=== PATIENT | female | born 1955 | race Caucasian/White ===

== ENCOUNTER 2019-04-26 21:42 | Inpatient (IN) | payer BC, OTHER ==
[2019-04-26] MEDS ORDERED: Albuterol/Ipratropium 3.0-0.5 MG/3 ML Neb Soln ONE (21:44)
[2019-04-26] MEDS ORDERED: Albuterol/Ipratropium 3.0-0.5 MG/3 ML Neb Soln NEB ONE (22:02)
[2019-04-26] MEDS ORDERED: methylPREDNISolone Sodium Succinate 125 MG/2 ML SDV IVPUSH ONE (22:02)
--- NOTE | 2019-04-26 22:20 | EDM.PDOC ---
ED HPI GENERAL MEDICAL PROBLEM - General Chief Complaint: Respiratory Problem Stated Complaint: TROUBLE BREATHING Time Seen by Provider: 04/26/19 22:15 Source of Information: Reports: Patient History Limitations: Reports: No Limitations - History of Present Illness INITIAL COMMENTS - FREE TEXT/NARRATIVE: This is a 63-year-old female who presents to the emergency room with a chief complaint of severe shortness of breath. Patient is a smoker and was diagnosed with COPD last cigarette intake was 2 days ago patient states she has been short of breath with sick kids in the house. Onset: Today Duration: Day(s):, Getting Worse Location: Reports: Chest Severity: Moderate Improves with: Reports: None Worsens with: Reports: Movement Associated Symptoms: Reports: cough w sputum, Shortness of Breath - Related Data Allergies Allergy/AdvReac Type Severity Reaction Status Date / Time Penicillins Allergy Other Verified 04/26/19 21:50 Home Meds: Home Meds Albuterol [Ventolin HFA] 1 puff INH ASDIRECTED PRN 04/26/19 [History] Albuterol/Ipratropium [Combivent Respimat] 1 puff IH ASDIRECTED PRN 04/26/19 [ History] Budesonide/Formoterol Fumarate [Symbicort 160-4.5 Mcg Inhaler] 1 puff IH BID [History] lisinopriL [Lisinopril] 10 mg PO DAILY 04/26/19 [History] Past Medical History HEENT History: Reports: None Cardiovascular History: Reports: Hypertension Respiratory History: Reports: COPD Gastrointestinal History: Reports: None Genitourinary History: Reports: None [employer] History: Reports: Musculoskeletal History: Reports: None Neurological History: Reports: None Psychiatric History: Reports: None Endocrine/Metabolic History: Reports: None Hematologic History: Reports: None Immunologic History: Reports: None Oncologic (Cancer) History: Reports: None Dermatologic History: Reports: None - Infectious Disease History Infectious Disease History: Reports: Meningitis - Past Surgical History Head Surgeries/Procedures: Reports: None GI Surgical History: Reports: Cholecystectomy Social & Family History - Family History Family Medical History: Noncontributory - Tobacco Use Smoking Status *Q: Current Every Day Smoker Years of Tobacco use: 42 Packs/Tins Daily: 0.5 - Caffeine Use Caffeine Use: Reports: Coffee - Recreational Drug Use Recreational Drug Use: No ED ROS GENERAL - Review of Systems Review Of Systems: See Below Constitutional: Reports: Malaise, Weakness HEENT: Reports: No Symptoms Respiratory: Reports: Shortness of Breath, Cough Cardiovascular: Reports: Dyspnea on Exertion Endocrine: Reports: No Symptoms GI/Abdominal: Reports: No Symptoms : Reports: No Symptoms Musculoskeletal: Reports: No Symptoms Skin: Reports: No Symptoms Neurological: Reports: No Symptoms Psychiatric: Reports: No Symptoms Hematologic/Lymphatic: Reports: No Symptoms Immunologic: Reports: No Symptoms ED EXAM, GENERAL - Physical Exam Exam: See Below Free Text/Narrative:: 63-year-old with shortness of breath Physical exam HEENT is normal Chest normal lungs: Added wheezing use of accessory muscles decreased breath sounds abdomen normal Exam Limited By: No Limitations General Appearance: Alert, WD/WN, Moderate Distress Eye Exam: Bilateral Eye: Normal Fundi, Normal Inspection Nose: Normal Inspection, Normal Mucosa, No Blood Throat/Mouth: Normal Inspection, Normal Lips, Normal Teeth Head: Atraumatic, Normocephalic Neck: Normal Inspection, Supple, Non-Tender Respiratory/Chest: Decreased Breath Sounds, Wheezing, Accessory Muscle Use, Prolonged Expiration Cardiovascular: Normal Peripheral Pulses, Regular Rate, Rhythm, No Edema, No JVD , No Murmur GI/Abdominal: Normal Bowel Sounds, Soft, Non-Tender, No Distention, No Abnormal Bruit (Female) Exam: Deferred Rectal (Female) Exam: Deferred Extremities: Normal Inspection, Normal Range of Motion Neurological: Alert, Oriented, CN II-XII Intact Psychiatric: Normal Affect, Normal Mood Skin Exam: Warm, Dry, Intact Course - Vital Signs Text/Narrative:: 63-year-old female presents to the emergency room chief complaint of severe shortness of breath. Patient has a history of COPD and a strong smoking history. Patient states she been short of breath for the last 5 days without improvement. Patient also has a lot of sick babies in her house. On physical exam patient is wheezing and very short of breath using some accessory muscles H EENT: Throat is normal ears are normal no evidence of deviation Chest: Normal S1-S2 no tenderness along costal margin Lungs: Bilateral wheezing and rhonchi throughout. Some accessory muscles Abdomen soft tender Extremities normal Last Recorded V/S: Last Vital Signs Temp 97 F 04/27/19 00:43 Pulse 67 04/27/19 00:43 Resp 20 04/27/19 00:43 BP 141/78 H 04/27/19 00:43 Pulse Ox 93 L 04/27/19 00:43 - Orders/Labs/Meds Orders: Active Orders 24 hr Category Date Time Status RT Aerosol Therapy [RC] ASDIRECTED Care 04/26/19 22:02 Active Labs: Laboratory Tests 04/26/19 04/26/19 04/26/19 Range/Units 21:50 21:50 21:50 WBC 6.60 (4.0-11.0) K/uL RBC 4.61 (4.30-5.90) M/uL Hgb 13.6 (12.0-16.0) g/dL Hct 42.4 (36.0-46.0) % MCV 92.0 (80.0-98.0) fL MCH 29.5 (27.0-32.0) pg MCHC 32.1 (31.0-37.0) g/dL RDW Std Deviation 49.1 (28.0-62.0) fl RDW Coeff of Silvio 15 (11.0-15.0) % Plt Count 249 (150-400) K/uL MPV 9.90 (7.40-12.00) fL Add Manual Diff YES Neutrophils % (Manual) 41 L (48.0-80.0) % Lymphocytes % (Manual) 52 H (16.0-40.0) % Monocytes % (Manual) 5 (0.0-15.0) % Eosinophils % (Manual) 2 (0.0-7.0) % Nucleated RBC % 0.0 /100WBC Absolute Seg Neuts 2.7 (1.4-5.7) Band Neutrophils # 3.4 Lymphocytes # (Manual) 3.4 H (0.6-2.4) Monocytes # (Manual) 0.3 (0.0-0.8) Eosinophils # (Manual) 0.1 (0.0-0.7) Nucleated RBCs # 0 K/uL Sodium 139 (136-145) mmol/L Potassium 4.2 (3.5-5.1) mmol/L Chloride 103 (98-107) mmol/L Carbon Dioxide 29.7 (21.0-32.0) mmol/L BUN 10 (7.0-18.0) mg/dL Creatinine 0.7 (0.6-1.0) mg/dL Est Cr Clr Drug Dosing 90.11 mL/min Estimated GFR (MDRD) > 60.0 ml/min Glucose 103 (74-106) mg/dL Calcium 9.1 (8.5-10.1) mg/dL Total Bilirubin 0.1 L (0.2-1.0) mg/dL AST 24 (15-37) IU/L ALT 33 (14-63) IU/L Alkaline Phosphatase 98 (46-116) U/L Troponin I < 0.050 (0.000-0.056) ng/mL B-Natriuretic Peptide 31 (<100) PG/ML Total Protein 7.8 (6.4-8.2) g/dL Albumin 3.4 (3.4-5.0) g/dL Globulin 4.4 H (2.6-4.0) g/dL Albumin/Globulin Ratio 0.8 L (0.9-1.6) Meds: Medications Discontinued Medications Generic Name Dose Route Start Last Admin Trade Name Freq PRN Reason Stop Dose Admin Albuterol/Ipratropium Confirm 04/26/19 21:44 04/26/19 22:09 Duoneb 3.0-0.5 Mg/3 Ml Administered 04/26/19 21:45 Not Given Dose 3 ml .ROUTE .STK-MED ONE Albuterol/Ipratropium 3 ml 04/26/19 22:02 04/26/19 22:07 Duoneb 3.0-0.5 Mg/3 Ml NEB 04/26/19 22:03 3 ml ONETIME ONE Administration Methylprednisolone Sodium Succinate 125 mg 04/26/19 22:02 04/26/19 22:07 Solu-Medrol IVPUSH 04/26/19 22:03 125 mg ONETIME ONE Administration Departure - Departure Time of Disposition: 01:07 Disposition: Refer to Observation Condition: Fair Clinical Impression: COPD with exacerbation, Hypoxia - Discharge Information Referrals: PCP,Unknown [Primary Care Provider] - Forms: ED Department Discharge Sepsis Event Note - Evaluation Sepsis Screening Result: No Definite Risk - Focused Exam Vital Signs: Vital Signs Temp Pulse Resp BP Pulse Ox 04/27/19 00:43 97 F 67 20 141/78 H 93 L 04/26/19 22:14 84 26 H 160/66 H 94 L 04/26/19 21:47 96.8 F 78 28 H 192/73 H 78 L Date Exam was Performed: 04/27/19 Time Exam was Performed: 01:04 - My Orders Last 24 Hours: My Active Orders 04/26/19 22:02 RT Aerosol Therapy [RC] ASDIRECTED - Assessment/Plan Last 24 Hours: My Active Orders 04/26/19 22:02 RT Aerosol Therapy [RC] ASDIRECTED
[2019-04-26 22:25] LABS: BLOOD UREA NITROGEN,BUN 10 mg/dL (7.0-18.0); CARBON DIOXIDE,CO2 29.7 mmol/L (21.0-32.0); CHLORIDE,CL 103 mmol/L (98-107); GLUCOSE RANDOM 103 mg/dL (74-106); POTASSIUM,K 4.2 mmol/L (3.5-5.1); SODIUM,NA 139 mmol/L (136-145)
--- NOTE | 2019-04-26 23:07 | CR ---
INDICATION: Shortness of breath TECHNIQUE: Chest 1 view COMPARISON: None FINDINGS: Cardiovascular and mediastinum: Heart size and vasculature are normal in caliber and appearance. Lungs and pleural spaces: No pleural effusion or pneumothorax. No focal consolidation. Bones and soft tissues: No significant findings. IMPRESSION: No acute pulmonary consolidation. Dictated by Rommel Villeda MD @ Apr 26 2019 11:05PM Signed by Dr. Rommel Villeda @ Apr 26 2019 11:06PM
[2019-04-27] MEDS: methylPREDNISolone Sodium Succinate 125 MG/2 ML SDV IVPUSH SCH ×3 (05:32→22:06)
[2019-04-27] MEDS ORDERED: Albuterol/Ipratropium 3.0-0.5 MG/3 ML Neb Soln NEB SCH (06:00)
[2019-04-27 06:12] LABS: BLOOD UREA NITROGEN,BUN 10 mg/dL (7.0-18.0); CHLORIDE,CL 103 mmol/L (98-107); GLUCOSE RANDOM 145 mg/dL (74-106); SODIUM,NA 139 mmol/L (136-145)
--- NOTE | 2019-04-27 08:53 | PCM.HP.2 ---
H&P History of Present Illness - General Date of Service: 04/27/19 Admit Problem/Dx: Admission Diagnosis/Problem Admission Diagnosis/Problem Hypoxia Source of Information: Patient History Limitations: Reports: No Limitations - History of Present Illness Initial Comments - Free Text/Narative: Pt is a 63-year-old female with past medical history of COPD and chronic tobacco abuse, hypertension; presenting yesterday with acute on chronic worsening of shortness of breath. Patient denied any fevers or chills however was stating that normally she has exertional dyspnea however she started to experience worsening dyspnea even at rest. Patient denies any fevers, chills, body aches, chest pain, diarrhea, constipation. Does endorse having some sick kids around her however cannot think of any other symptoms. States her last cigarette was 3 days prior and has been more or less compliant with her daily medications. ED course: Chest x-ray negative, received a dose of IV methylprednisolone and DuoNeb treatments. Flu was also negative. Last echocardiogram was per patient greater than 5 years ago. Bedside: Shortness of breath at rest; endorses not using oxygen at home secondary to her financial status. Was advised to use oxygen at home per her primary physician. No complaints at this time. Headache Pain Score (Numeric/FACES): 2 - Related Data Allergies/Adverse Reactions: Allergies Allergy/AdvReac Type Severity Reaction Status Date / Time Penicillins Allergy Other Verified 04/27/19 07:51 Home Medications: Home Meds Albuterol [Ventolin HFA] 1 puff INH ASDIRECTED PRN 04/26/19 [History] Albuterol/Ipratropium [Combivent Respimat] 1 puff IH ASDIRECTED PRN 04/26/19 [ History] Budesonide/Formoterol Fumarate [Symbicort 160-4.5 Mcg Inhaler] 2 puff IH BID [History] lisinopriL [Lisinopril] 10 mg PO DAILY 04/26/19 [History] Past Medical History HEENT History: Reports: None Cardiovascular History: Reports: Hypertension Respiratory History: Reports: Asthma, COPD Gastrointestinal History: Reports: None Genitourinary History: Reports: None [employer] History: Reports: Musculoskeletal History: Reports: None Neurological History: Reports: None Psychiatric History: Reports: None Endocrine/Metabolic History: Reports: None Hematologic History: Reports: None Immunologic History: Reports: None Oncologic (Cancer) History: Reports: None Dermatologic History: Reports: None - Infectious Disease History Infectious Disease History: Reports: Meningitis - Past Surgical History Head Surgeries/Procedures: Reports: None GI Surgical History: Reports: Cholecystectomy Social & Family History - Family History Family Medical History: Noncontributory - Tobacco Use Smoking Status *Q: Current Every Day Smoker Years of Tobacco use: 40 Packs/Tins Daily: 5 - Caffeine Use Caffeine Use: Reports: Coffee - Recreational Drug Use Recreational Drug Use: No H&P Review of Systems - Review of Systems: Review Of Systems: See Below General: Denies: Fever, Chills, Malaise, Weakness, Fatigue HEENT: Reports: No Symptoms Pulmonary: Reports: Shortness of Breath, Cough. Denies: Pleuritic Chest Pain, Sputum Cardiovascular: Reports: Dyspnea on Exertion. Denies: Chest Pain, Palpitations , Edema Gastrointestinal: Reports: No Symptoms Genitourinary: Reports: No Symptoms Musculoskeletal: Reports: No Symptoms Psychiatric: Reports: No Symptoms Neurological: Reports: No Symptoms Exam - Exam Exam: See Below - Vital Signs Vital Signs: Last Vital Signs Temp 97.2 F 04/27/19 08:00 Pulse 80 04/27/19 08:00 Resp 21 H 04/27/19 08:00 BP 179/84 H 04/27/19 08:00 Pulse Ox 93 L 04/27/19 08:00 Weight: 235 lb 1.6 oz - Exam Quality Assessment: Supplemental Oxygen General: Alert, Oriented, Cooperative HEENT: EOMI, Mucosa Moist & [place] Neck: Supple, Trachea Midline Lungs: Other (Faint wheeze in upper lung [place]; tight but moving air ) Cardiovascular: Regular Rate, Regular Rhythm GI/Abdominal Exam: Normal Bowel Sounds, Soft, Non-Tender Extremities: Other (trace pitting edema of lower extrmeities ) Skin: Warm, Dry Neuro Extensive - Mental Status: Alert, Oriented x3 Neuro Extensive - Motor, Sensory, Reflexes: Normal Gait Psychiatric: Alert, Normal Affect, Normal Mood - Patient Data Lab Results Last 24 hrs: Laboratory Results - last 24 hr 04/26/19 04/26/19 04/26/19 Range/Units 21:50 21:50 21:50 WBC 6.60 (4.0-11.0) K/uL RBC 4.61 (4.30-5.90) M/uL Hgb 13.6 (12.0-16.0) g/dL Hct 42.4 (36.0-46.0) % MCV 92.0 (80.0-98.0) fL MCH 29.5 (27.0-32.0) pg MCHC 32.1 (31.0-37.0) g/dL RDW Std Deviation 49.1 (28.0-62.0) fl RDW Coeff of Silvio 15 (11.0-15.0) % Plt Count 249 (150-400) K/uL MPV 9.90 (7.40-12.00) fL Add Manual Diff YES Neutrophils % (Manual) 41 L (48.0-80.0) % Lymphocytes % (Manual) 52 H (16.0-40.0) % Monocytes % (Manual) 5 (0.0-15.0) % Eosinophils % (Manual) 2 (0.0-7.0) % Basophils % (Manual) (0.0-1.5) % Nucleated RBC % 0.0 /100WBC Absolute Seg Neuts 2.7 (1.4-5.7) Band Neutrophils # 3.4 Lymphocytes # (Manual) 3.4 H (0.6-2.4) Monocytes # (Manual) 0.3 (0.0-0.8) Eosinophils # (Manual) 0.1 (0.0-0.7) Basophils # (Manual) (0.0-0.1) Nucleated RBCs # 0 K/uL Sodium 139 (136-145) mmol/L Potassium 4.2 (3.5-5.1) mmol/L Chloride 103 (98-107) mmol/L Carbon Dioxide 29.7 (21.0-32.0) mmol/L BUN 10 (7.0-18.0) mg/dL Creatinine 0.7 (0.6-1.0) mg/dL Est Cr Clr Drug Dosing 90.11 mL/min Estimated GFR (MDRD) > 60.0 ml/min Glucose 103 (74-106) mg/dL Calcium 9.1 (8.5-10.1) mg/dL Total Bilirubin 0.1 L (0.2-1.0) mg/dL AST 24 (15-37) IU/L ALT 33 (14-63) IU/L Alkaline Phosphatase 98 (46-116) U/L Troponin I < 0.050 (0.000-0.056) ng/mL B-Natriuretic Peptide 31 (<100) PG/ML Total Protein 7.8 (6.4-8.2) g/dL Albumin 3.4 (3.4-5.0) g/dL Globulin 4.4 H (2.6-4.0) g/dL Albumin/Globulin Ratio 0.8 L (0.9-1.6) 04/27/19 04/27/19 Range/Units 05:40 05:40 WBC 5.13 (4.0-11.0) K/uL RBC 4.51 (4.30-5.90) M/uL Hgb 13.2 (12.0-16.0) g/dL Hct 41.6 (36.0-46.0) % MCV 92.2 (80.0-98.0) fL MCH 29.3 (27.0-32.0) pg MCHC 31.7 (31.0-37.0) g/dL RDW Std Deviation 49.1 (28.0-62.0) fl RDW Coeff of Silvio 15 (11.0-15.0) % Plt Count 258 (150-400) K/uL MPV 10.00 (7.40-12.00) fL Add Manual Diff YES Neutrophils % (Manual) 77 (48.0-80.0) % Lymphocytes % (Manual) 20 (16.0-40.0) % Monocytes % (Manual) 2 (0.0-15.0) % Eosinophils % (Manual) (0.0-7.0) % Basophils % (Manual) 1 (0.0-1.5) % Nucleated RBC % 0.0 /100WBC Absolute Seg Neuts 4.0 (1.4-5.7) Band Neutrophils # Lymphocytes # (Manual) 1.0 (0.6-2.4) Monocytes # (Manual) 0.1 (0.0-0.8) Eosinophils # (Manual) (0.0-0.7) Basophils # (Manual) 0.1 (0.0-0.1) Nucleated RBCs # 0 K/uL Sodium 139 (136-145) mmol/L Potassium 5.0 (3.5-5.1) mmol/L Chloride 103 (98-107) mmol/L Carbon Dioxide 28.0 (21.0-32.0) mmol/L BUN 10 (7.0-18.0) mg/dL Creatinine 0.7 (0.6-1.0) mg/dL Est Cr Clr Drug Dosing 90.11 mL/min Estimated GFR (MDRD) > 60.0 ml/min Glucose 145 H (74-106) mg/dL Calcium 8.8 (8.5-10.1) mg/dL Total Bilirubin (0.2-1.0) mg/dL AST (15-37) IU/L ALT (14-63) IU/L Alkaline Phosphatase (46-116) U/L Troponin I (0.000-0.056) ng/mL B-Natriuretic Peptide (<100) PG/ML Total Protein (6.4-8.2) g/dL Albumin (3.4-5.0) g/dL Globulin (2.6-4.0) g/dL Albumin/Globulin Ratio (0.9-1.6) Result Diagrams: 04/27/19 05:40 04/27/19 05:40 Abelardo Results Last 24 hrs: Microbiology 04/26/19 23:04 Influenza Type A Antigen Screen - Final Nasopharyngeal Swab NEGATIVE INFLUENZA A VIRUS AG REFERENCE RANGE: NEGATIVE Influenza Type B Antigen Screen - Final NEGATIVE INFLUENZA B VIRUS AG REFERENCE RANGE: NEGATIVE Sepsis Event Note - Evaluation Sepsis Screening Result: No Definite Risk - Focused Exam Vital Signs: Vital Signs Temp Pulse Resp BP Pulse Ox 04/27/19 08:00 97.2 F 80 21 H 179/84 H 93 L 04/27/19 04:00 97.2 F 73 18 142/67 H 97 04/27/19 01:11 96.6 F 24 H 163/77 H 94 L 04/27/19 00:43 97 F 67 20 141/78 H 93 L 04/26/19 22:14 84 26 H 160/66 H 94 L 04/26/19 21:47 96.8 F 78 28 H 192/73 H 78 L Date Exam was Performed: 04/27/19 Time Exam was Performed: 12:05 Problem List Initiated/Reviewed/Updated: Yes Orders Last 24hrs: Active Orders 24 hr Category Date Time Status Admission Status [Patient Status] [ADT] Stat ADT 04/27/19 01:08 Active Influenza Vaccine Charge [RC] .DISCHARGE Care 04/27/19 01:28 Active RT Aerosol Therapy [RC] ASDIRECTED Care 04/26/19 22:02 Active RT Aerosol Therapy [RC] ASDIRECTED Care 04/27/19 01:57 Active Telemetry Monitoring [Cardiac Monitoring] [RC] . Care 04/27/19 07:30 Active DIRECTED Regular Diet [DIET] Diet 04/27/19 Breakfast Active Albuterol/Ipratropium [DuoNeb 3.0-0.5 MG/3 ML] Med 04/27/19 06:00 Active 3 ml NEB Q6HRRT FLU Vacc [id number](6MOS+)/PF [Fluzone Quad Med 04/27/19 10:00 Once Syringe] 60 mcg IM .ONCE ONE methylPREDNISolone Sod Succ [Solu-MEDROL] Med 04/27/19 06:00 Active 125 mg IVPUSH Q8H Medication Orders Albuterol/Ipratropium (Duoneb 3.0-0.5 Mg/3 Ml) 3 ml NEB Q6HRRT [facility] Last Admin: 04/27/19 05:29 Dose: 3 ml Influenza Virus Vaccine (Fluzone Quad Syringe) 60 mcg IM .ONCE ONE Stop: 04/27/19 10:01 Methylprednisolone Sodium Succinate (Solu-Medrol) 125 mg IVPUSH Q8H [facility] Last Admin: 04/27/19 05:32 Dose: 125 mg Assessment/Plan Comment:: Assessment: 1. COPD exacerbation 2. Tobacco abuse 3. PMH: HTN Plan: Admit to inpatient. Full code. 1. Continue supplemental O2, Duo nebs q4hrs and IV-methylprednisolone q8hrs; hold home COPD medications for now; continue Lisinopril. Ordered a ECHO to evaluate for increasing SOB w. exertion and orthopnea 2. Nicotine patch if necessary 3. Continue to monitor throughout today; may require home O2 at discharge; continuous pulse ox 4. pt understood plan.
[2019-04-27] MEDS: Heparin Sodium 5,000 Units/ML Vial IVPUSH SCH ×2 (09:42→17:23)
[2019-04-27] MEDS: Lisinopril 10 MG Tab PO SCH (09:42)
[2019-04-27] MEDS: Pantoprazole 40 MG Tab.CR PO SCH (09:42)
[2019-04-27] MEDS ORDERED: FLU Vacc QS2019-20(6MOS+)/PF 60 MCG/0.5 ML SYRINGE IM ONE (10:00)
[2019-04-27] MEDS: Albuterol/Ipratropium 3.0-0.5 MG/3 ML Neb Soln NEB SCH ×4 (11:13→21:23)
[2019-04-27] MEDS: Levofloxacin 250 MG Tab PO SCH (11:17)
[2019-04-27] MEDS ORDERED: Albuterol/Ipratropium 3.0-0.5 MG/3 ML Neb Soln NEB PRN (13:36)
[2019-04-28] MEDS: Heparin Sodium 5,000 Units/ML Vial IVPUSH SCH ×2 (01:44→02:10)
[2019-04-28] MEDS: Albuterol/Ipratropium 3.0-0.5 MG/3 ML Neb Soln NEB SCH ×6 (01:45→22:34)
[2019-04-28] MEDS: Heparin Sodium 5,000 Units/ML Vial SUBCUT SCH ×4 (02:19→17:18)
[2019-04-28 06:18] LABS: BLOOD UREA NITROGEN,BUN 12 mg/dL (7.0-18.0); CARBON DIOXIDE,CO2 28.7 mmol/L (21.0-32.0); CHLORIDE,CL 102 mmol/L (98-107); GLUCOSE RANDOM 152 mg/dL (74-106); POTASSIUM,K 4.1 mmol/L (3.5-5.1); SODIUM,NA 140 mmol/L (136-145)
[2019-04-28] MEDS: methylPREDNISolone Sodium Succinate 125 MG/2 ML SDV IVPUSH SCH ×3 (06:30→22:10)
[2019-04-28] MEDS: Pantoprazole 40 MG Tab.CR PO SCH (08:46)
[2019-04-28] MEDS: Lisinopril 10 MG Tab PO SCH (08:47)
--- NOTE | 2019-04-28 08:57 | PCM.PN ---
- General Info Date of Service: 04/28/19 Subjective Update: Bedside: endorses feeling better than yesterday but still feels SOB at rest despite supplemental O2; no pain or discomfort. Functional Status: Reports: Pain Controlled - Review of Systems General: Denies: Fever, Weakness, Fatigue, Chills HEENT: Reports: No Symptoms Pulmonary: Reports: Shortness of Breath, Cough. Denies: Pleuritic Chest Pain, Sputum, Wheezing Cardiovascular: Reports: Dyspnea on Exertion, Orthopnea. Denies: Chest Pain, Palpitations, Edema Gastrointestinal: Reports: No Symptoms Genitourinary: Reports: No Symptoms Musculoskeletal: Reports: No Symptoms Neurological: Reports: No Symptoms. Denies: Confusion, Dizziness, Headache - Patient Data Vitals - Most Recent: Last Vital Signs Temp 97 F 04/28/19 04:00 Pulse 86 04/28/19 04:00 Resp 21 H 04/28/19 04:00 BP 122/68 04/28/19 08:47 Pulse Ox 87 L 04/28/19 04:00 Weight - Most Recent: 235 lb 1.6 oz I&O - Last 24 Hours: Intake & Output 04/27/19 04/28/19 04/28/19 22:59 06:59 14:59 Intake Total 700 800 Output Total 400 1000 Balance 300 -200 Lab Results Last 24 Hours: Laboratory Results - last 24 hr 04/28/19 04/28/19 Range/Units 05:45 05:45 WBC 5.86 (4.0-11.0) K/uL RBC 4.25 L (4.30-5.90) M/uL Hgb 12.7 (12.0-16.0) g/dL Hct 38.8 (36.0-46.0) % MCV 91.3 (80.0-98.0) fL MCH 29.9 (27.0-32.0) pg MCHC 32.7 (31.0-37.0) g/dL RDW Std Deviation 47.3 (28.0-62.0) fl RDW Coeff of Silvio 14 (11.0-15.0) % Plt Count 263 (150-400) K/uL MPV 10.30 (7.40-12.00) fL Neut % (Auto) 74.4 (48.0-80.0) % Lymph % (Auto) 18.4 (16.0-40.0) % Boyle % (Auto) 7.0 (0.0-15.0) % Eos % (Auto) 0.0 (0.0-7.0) % Baso % (Auto) 0.2 (0.0-1.5) % Neut # (Auto) 4.4 (1.4-5.7) K/uL Lymph # (Auto) 1.1 (0.6-2.4) K/uL [place] # (Auto) 0.4 (0.0-0.8) K/uL Eos # (Auto) 0.0 (0.0-0.7) K/uL Baso # (Auto) 0.0 (0.0-0.1) K/uL Nucleated RBC % 0.0 /100WBC Nucleated RBCs # 0 K/uL Sodium 140 (136-145) mmol/L Potassium 4.1 (3.5-5.1) mmol/L Chloride 102 (98-107) mmol/L Carbon Dioxide 28.7 (21.0-32.0) mmol/L BUN 12 (7.0-18.0) mg/dL Creatinine 0.8 (0.6-1.0) mg/dL Est Cr Clr Drug Dosing 78.85 mL/min Estimated GFR (MDRD) > 60.0 ml/min Glucose 152 H (74-106) mg/dL Calcium 8.9 (8.5-10.1) mg/dL Total Bilirubin 0.2 (0.2-1.0) mg/dL AST 30 (15-37) IU/L ALT 36 (14-63) IU/L Alkaline Phosphatase 84 (46-116) U/L Total Protein 7.4 (6.4-8.2) g/dL Albumin 3.1 L (3.4-5.0) g/dL Globulin 4.3 H (2.6-4.0) g/dL Albumin/Globulin Ratio 0.7 L (0.9-1.6) Med Orders - Current: Current Medications Albuterol/Ipratropium (Duoneb 3.0-0.5 Mg/3 Ml) 3 ml NEB Q4HRRT [facility] Last Admin: 04/28/19 06:00 Dose: 3 ml Albuterol/Ipratropium (Duoneb 3.0-0.5 Mg/3 Ml) 3 ml NEB Q2H PRN PRN Reason: Shortness of Breath Heparin Sodium (Porcine) (Heparin Sodium) 5,000 units SUBCUT Q8H [facility] Last Admin: 04/28/19 08:48 Dose: 5,000 units Influenza Virus Vaccine (Fluzone Quad [id number] Syringe) 60 mcg IM .ONCE ONE Stop: 04/28/19 09:01 Levofloxacin (Levaquin) 750 mg PO Q24H [facility] Last Admin: 04/27/19 11:17 Dose: 750 mg Lisinopril (Prinivil) 10 mg PO DAILY [facility] Last Admin: 04/28/19 08:47 Dose: 10 mg Methylprednisolone Sodium Succinate (Solu-Medrol) 125 mg IVPUSH Q8H [facility] Last Admin: 04/28/19 06:30 Dose: 125 mg Pantoprazole Sodium (Protonix) 40 mg PO DAILY [facility] Last Admin: 04/28/19 08:46 Dose: 40 mg Discontinued Medications Albuterol/Ipratropium (Duoneb 3.0-0.5 Mg/3 Ml) Confirm Administered Dose 3 ml .ROUTE .STK-MED ONE Stop: 04/26/19 21:45 Last Admin: 04/26/19 22:09 Dose: Not Given Albuterol/Ipratropium (Duoneb 3.0-0.5 Mg/3 Ml) 3 ml NEB ONETIME ONE Stop: 04/26/19 22:03 Last Admin: 04/26/19 22:07 Dose: 3 ml Albuterol/Ipratropium (Duoneb 3.0-0.5 Mg/3 Ml) 3 ml NEB Q6HRRT [facility] Last Admin: 04/27/19 05:29 Dose: 3 ml Heparin Sodium (Porcine) (Heparin Sodium) 5,000 units IVPUSH Q8H [facility] Last Admin: 04/28/19 02:10 Dose: Not Given Influenza Virus Vaccine (Pharmacy To Dose - Influenza Vaccine) 1 each IM ONETIME ONE Stop: 04/27/19 01:29 Methylprednisolone Sodium Succinate (Solu-Medrol) 125 mg IVPUSH ONETIME ONE Stop: 04/26/19 22:03 Last Admin: 04/26/19 22:07 Dose: 125 mg - Exam Quality Assessment: Supplemental Oxygen General: Alert, Oriented, Cooperative, No Acute Distress HEENT: EOMI, Mucous Membr. Moist/[place] Neck: Supple Lungs: Other (tight and diminshed BS (particulalry in lower [place]) w/ congestion in anterior lung [place] ) Cardiovascular: Regular Rate, Regular Rhythm GI/Abdominal Exam: Soft, Non-Tender Extremities: Other (trace pitting edema ) Skin: Warm, Dry Psy/Mental Status: Alert, Normal Affect, Normal Mood Sepsis Event Note - Evaluation Sepsis Screening Result: No Definite Risk - Focused Exam Vital Signs: Vital Signs Temp Pulse Resp BP BP Pulse Ox 04/28/19 08:47 122/68 04/28/19 04:00 97 F 86 21 H 150/67 H 87 L 04/28/19 00:00 97 F 20 138/75 88 L Date Exam was Performed: 04/28/19 Time Exam was Performed: 10:57 - Problem List Review Problem List Initiated/Reviewed/Updated: Yes - My Orders Last 24 Hours: My Active Orders 04/27/19 09:00 Up ad Arely [RC] ASDIRECTED lisinopriL [Prinivil] 10 mg PO DAILY Code Status [Resuscitation Status] Routine 04/27/19 09:15 Pantoprazole [ProTONIX] 40 mg PO DAILY 04/27/19 10:00 Albuterol/Ipratropium [DuoNeb 3.0-0.5 MG/3 ML] 3 ml NEB Q4HRRT 04/27/19 13:36 Albuterol/Ipratropium [DuoNeb 3.0-0.5 MG/3 ML] 3 ml NEB Q2H PRN 04/27/19 13:37 RT Aerosol Therapy [RC] ASDIRECTED - Plan Plan:: Assessment: 1. COPD exacerbation 2. Tobacco abuse 3. PMH: HTN Plan: Admit to inpatient. Full code. 1. Continue supplemental O2, Duo nebs q4hrs and IV-methylprednisolone q8hrs; hold home COPD medications for now; continue Lisinopril. Ordered a ECHO to evaluate for increasing SOB w. exertion and orthopnea 2. Nicotine patch if necessary 3. Continue to monitor throughout today; will require home O2 at discharge; continuous pulse ox 4. pt understood plan. 5. Levaquin initiated; continue to monitor
[2019-04-28] MEDS ORDERED: FLU Vacc QS2019-20(6MOS+)/PF 60 MCG/0.5 ML SYRINGE IM ONE (09:00)
[2019-04-28] MEDS: Levofloxacin 250 MG Tab PO SCH (10:14)
[2019-04-29] MEDS: Heparin Sodium 5,000 Units/ML Vial SUBCUT SCH ×2 (01:03→09:40)
[2019-04-29] MEDS: Albuterol/Ipratropium 3.0-0.5 MG/3 ML Neb Soln NEB SCH ×4 (01:59→13:27)
[2019-04-29] MEDS: methylPREDNISolone Sodium Succinate 125 MG/2 ML SDV IVPUSH SCH ×2 (05:53→13:29)
[2019-04-29 06:43] LABS: BLOOD UREA NITROGEN,BUN 16 mg/dL (7.0-18.0); CARBON DIOXIDE,CO2 29.4 mmol/L (21.0-32.0); CHLORIDE,CL 101 mmol/L (98-107); GLUCOSE RANDOM 149 mg/dL (74-106); POTASSIUM,K 4.1 mmol/L (3.5-5.1); SODIUM,NA 138 mmol/L (136-145)
[2019-04-29] MEDS ORDERED: Benzocaine/Cetylpyridinium/Menthol Lozenge MUCMEM PRN (09:28)
[2019-04-29] MEDS: Pantoprazole 40 MG Tab.CR PO SCH (09:37)
[2019-04-29] MEDS: Lisinopril 10 MG Tab PO SCH (09:37)
[2019-04-29] MEDS: Levofloxacin 250 MG Tab PO SCH (09:38)
--- NOTE | 2019-04-29 10:18 | PCM.DCSUM1 ---
<Kaelyn Champion - Last Filed: 04/29/19 15:26> Discharge Summary - Hospital Course Free Text/Narrative:: Discharge summary Admission diagnoses: COPD exacerbation Past medical history: Tobacco abuse, hypertension Consultations: None Procedures: None Hospital course: 63-year-old female with a significant past medical history of COPD presenting with worsening shortness of breath at rest, nonproductive cough. Was diagnosed with a COPD exacerbation; chest x-ray was negative. Initiated on IV methylprednisolone, Levaquin and DuoNeb treatments. Patient throughout her stay required oxygen and more or less determined 2 L of oxygen was required continuously. Patient was discharged with home O2, Levaquin for 3 additional days, prednisone for 3 additional days, prescription for PFTs for evaluation of outpatient pulmonary rehab. Appointment with primary care also set up. Discharge condition: Stable Disposition: Home Discharge medications: Home medications plus prednisone/Levaquin/ Discharge instructions: Follow with PCP; use oxygen as needed. Complete home medications. Follow-up in outpatient pulmonary function testing Follow-up: PCP - Discharge Data Discharge Date: 04/29/19 Discharge Disposition: Home, Self-Care 01 Condition: Fair - Referral to Home Health Primary Care Physician: PCP Unknown - Patient Instructions Diet: Heart Healthy Diet Notify Provider of: Fever, Increased Pain, Nausea and/or Vomiting - Discharge Plan *PRESCRIPTION DRUG MONITORING PROGRAM REVIEWED*: No *COPY OF PRESCRIPTION DRUG MONITORING REPORT IN PATIENT ELVIN: No Prescriptions/Med Rec: Levofloxacin [Levaquin] 750 mg PO DAILY 3 Days #3 tablet predniSONE [Prednisone] 40 mg PO DAILY 3 Days #3 tablet Home Medications: Home Meds Albuterol [Ventolin HFA] 1 puff INH ASDIRECTED PRN 04/26/19 [History] Albuterol/Ipratropium [Combivent Respimat] 1 puff IH ASDIRECTED PRN 04/26/19 [ History] Budesonide/Formoterol Fumarate [Symbicort 160-4.5 Mcg Inhaler] 2 puff IH BID [History] lisinopriL [Lisinopril] 10 mg PO DAILY 04/26/19 [History] Levofloxacin [Levaquin] 750 mg PO DAILY 3 Days #3 tablet 04/29/19 [Rx] predniSONE [Prednisone] 40 mg PO DAILY 3 Days #3 tablet 04/29/19 [Rx] Oxygen Therapy Mode: Nasal Cannula Patient Handouts: Home Oxygen Use, Adult, Levofloxacin tablets, Prednisone tablets Referrals: Von Galaviz MD [Resident] - 05/11/19 9:30 am (The appointment was not able to be made with Dr. Coburn due to him being 3-4 weeks out.) - Discharge Summary/Plan Comment DC Time >30 min.: No - Patient Data Vitals - Most Recent: Last Vital Signs Temp 96.8 F 04/29/19 07:37 Pulse 85 04/29/19 07:37 Resp 18 04/29/19 07:37 BP 138/77 04/29/19 09:37 Pulse Ox 90 L 04/29/19 09:00 Weight - Most Recent: 106.64 kg I&O - Last 24 hours: Intake & Output 04/28/19 04/29/19 04/29/19 22:59 06:59 14:59 Intake Total 2360 950 Output Total 1200 1250 Balance 1160 -300 Lab Results - Last 24 hrs: Laboratory Results - last 24 hr 04/29/19 04/29/19 04/29/19 Range/Units 06:07 06:07 06:07 WBC 8.75 (4.0-11.0) K/uL RBC 4.33 (4.30-5.90) M/uL Hgb 12.7 (12.0-16.0) g/dL Hct 38.9 (36.0-46.0) % MCV 89.8 (80.0-98.0) fL MCH 29.3 (27.0-32.0) pg MCHC 32.6 (31.0-37.0) g/dL RDW Std Deviation 47.0 (28.0-62.0) fl RDW Coeff of Silvio 14 (11.0-15.0) % Plt Count 278 (150-400) K/uL MPV 10.10 (7.40-12.00) fL Neut % (Auto) 85.8 H (48.0-80.0) % Lymph % (Auto) 8.8 L (16.0-40.0) % Clarke % (Auto) 5.3 (0.0-15.0) % Eos % (Auto) 0.0 (0.0-7.0) % Baso % (Auto) 0.1 (0.0-1.5) % Neut # (Auto) 7.5 H (1.4-5.7) K/uL Lymph # (Auto) 0.8 (0.6-2.4) K/uL Clarke # (Auto) 0.5 (0.0-0.8) K/uL Eos # (Auto) 0.0 (0.0-0.7) K/uL Baso # (Auto) 0.0 (0.0-0.1) K/uL Nucleated RBC % 0.0 /100WBC Nucleated RBCs # 0 K/uL Sodium 138 (136-145) mmol/L Potassium 4.1 (3.5-5.1) mmol/L Chloride 101 (98-107) mmol/L Carbon Dioxide 29.4 (21.0-32.0) mmol/L BUN 16 (7.0-18.0) mg/dL Creatinine 0.8 (0.6-1.0) mg/dL Est Cr Clr Drug Dosing 78.85 mL/min Estimated GFR (MDRD) > 60.0 ml/min Glucose 149 H (74-106) mg/dL POC Glucose (60-110) mg/dL Calcium 9.0 (8.5-10.1) mg/dL Magnesium 2.1 (1.8-2.4) mg/dL Total Bilirubin 0.2 (0.2-1.0) mg/dL AST 46 H (15-37) IU/L ALT 43 (14-63) IU/L Alkaline Phosphatase 79 (46-116) U/L Total Protein 7.4 (6.4-8.2) g/dL Albumin 3.4 (3.4-5.0) g/dL Globulin 4.0 (2.6-4.0) g/dL Albumin/Globulin Ratio 0.9 (0.9-1.6) 04/29/19 Range/Units 06:19 WBC (4.0-11.0) K/uL RBC (4.30-5.90) M/uL Hgb (12.0-16.0) g/dL Hct (36.0-46.0) % MCV (80.0-98.0) fL MCH (27.0-32.0) pg MCHC (31.0-37.0) g/dL RDW Std Deviation (28.0-62.0) fl RDW Coeff of Silvio (11.0-15.0) % Plt Count (150-400) K/uL MPV (7.40-12.00) fL Neut % (Auto) (48.0-80.0) % Lymph % (Auto) (16.0-40.0) % Clarke % (Auto) (0.0-15.0) % Eos % (Auto) (0.0-7.0) % Baso % (Auto) (0.0-1.5) % Neut # (Auto) (1.4-5.7) K/uL Lymph # (Auto) (0.6-2.4) K/uL Clarke # (Auto) (0.0-0.8) K/uL Eos # (Auto) (0.0-0.7) K/uL Baso # (Auto) (0.0-0.1) K/uL Nucleated RBC % /100WBC Nucleated RBCs # K/uL Sodium (136-145) mmol/L Potassium (3.5-5.1) mmol/L Chloride (98-107) mmol/L Carbon Dioxide (21.0-32.0) mmol/L BUN (7.0-18.0) mg/dL Creatinine (0.6-1.0) mg/dL Est Cr Clr Drug Dosing mL/min Estimated GFR (MDRD) ml/min Glucose (74-106) mg/dL POC Glucose 127 H (60-110) mg/dL Calcium (8.5-10.1) mg/dL Magnesium (1.8-2.4) mg/dL Total Bilirubin (0.2-1.0) mg/dL AST (15-37) IU/L ALT (14-63) IU/L Alkaline Phosphatase (46-116) U/L Total Protein (6.4-8.2) g/dL Albumin (3.4-5.0) g/dL Globulin (2.6-4.0) g/dL Albumin/Globulin Ratio (0.9-1.6) Med Orders - Current: Current Medications Albuterol/Ipratropium (Duoneb 3.0-0.5 Mg/3 Ml) 3 ml NEB Q4HRRT CHRISTINE Last Admin: 04/29/19 09:19 Dose: 3 ml Albuterol/Ipratropium (Duoneb 3.0-0.5 Mg/3 Ml) 3 ml NEB Q2H PRN PRN Reason: Shortness of Breath Benzocaine/Menthol (Cepacol Sore Throat) 1 lozenge MUCMEM 5XDAY PRN PRN Reason: Sore Throat Heparin Sodium (Porcine) (Heparin Sodium) 5,000 units SUBCUT Q8H [facility] Last Admin: 04/29/19 09:40 Dose: 5,000 units Levofloxacin (Levaquin) 750 mg PO Q24H [facility] Last Admin: 04/29/19 09:38 Dose: 750 mg Lisinopril (Prinivil) 10 mg PO DAILY [facility] Last Admin: 04/29/19 09:37 Dose: 10 mg Methylprednisolone Sodium Succinate (Solu-Medrol) 125 mg IVPUSH Q8H [facility] Last Admin: 04/29/19 05:53 Dose: 125 mg Pantoprazole Sodium (Protonix) 40 mg PO DAILY [facility] Last Admin: 04/29/19 09:37 Dose: 40 mg Discontinued Medications Albuterol/Ipratropium (Duoneb 3.0-0.5 Mg/3 Ml) Confirm Administered Dose 3 ml .ROUTE .STK-MED ONE Stop: 04/26/19 21:45 Last Admin: 04/26/19 22:09 Dose: Not Given Albuterol/Ipratropium (Duoneb 3.0-0.5 Mg/3 Ml) 3 ml NEB ONETIME ONE Stop: 04/26/19 22:03 Last Admin: 04/26/19 22:07 Dose: 3 ml Albuterol/Ipratropium (Duoneb 3.0-0.5 Mg/3 Ml) 3 ml NEB Q6HRRT [facility] Last Admin: 04/27/19 05:29 Dose: 3 ml Heparin Sodium (Porcine) (Heparin Sodium) 5,000 units IVPUSH Q8H [facility] Last Admin: 04/28/19 02:10 Dose: Not Given Influenza Virus Vaccine (Pharmacy To Dose - Influenza Vaccine) 1 each IM ONETIME ONE Stop: 04/27/19 01:29 Influenza Virus Vaccine (Fluzone Quad Syringe) 60 mcg IM .ONCE ONE Stop: 04/28/19 09:01 Methylprednisolone Sodium Succinate (Solu-Medrol) 125 mg IVPUSH ONETIME ONE Stop: 04/26/19 22:03 Last Admin: 04/26/19 22:07 Dose: 125 mg <Suman Watts - Last Filed: 04/30/19 14:38> Discharge Summary - Referral to Home Health Primary Care Physician: PCP Unknown - Patient Data Vitals - Most Recent: Last Vital Signs Temp 36.0 C 04/29/19 12:54 Pulse 80 04/29/19 12:54 Resp 18 04/29/19 12:54 BP 167/89 H 04/29/19 12:54 Pulse Ox 90 L 04/29/19 12:54 I&O - Last 24 hours: Intake & Output 04/29/19 04/30/19 04/30/19 22:59 06:59 14:59 Intake Total 1380 Output Total 825 Balance 555 Med Orders - Current: Current Medications Discontinued Medications Albuterol/Ipratropium (Duoneb 3.0-0.5 Mg/3 Ml) Confirm Administered Dose 3 ml .ROUTE .STK-MED ONE Stop: 04/26/19 21:45 Last Admin: 04/26/19 22:09 Dose: Not Given Albuterol/Ipratropium (Duoneb 3.0-0.5 Mg/3 Ml) 3 ml NEB ONETIME ONE Stop: 04/26/19 22:03 Last Admin: 04/26/19 22:07 Dose: 3 ml Albuterol/Ipratropium (Duoneb 3.0-0.5 Mg/3 Ml) 3 ml NEB Q6HRRT [facility] Last Admin: 04/27/19 05:29 Dose: 3 ml Albuterol/Ipratropium (Duoneb 3.0-0.5 Mg/3 Ml) 3 ml NEB Q4HRRT CHRISTINE Last Admin: 04/29/19 13:27 Dose: 3 ml Albuterol/Ipratropium (Duoneb 3.0-0.5 Mg/3 Ml) 3 ml NEB Q2H PRN PRN Reason: Shortness of Breath Benzocaine/Menthol (Cepacol Sore Throat) 1 lozenge MUCMEM 5XDAY PRN PRN Reason: Sore Throat Last Admin: 04/29/19 10:16 Dose: 1 lozenge Heparin Sodium (Porcine) (Heparin Sodium) 5,000 units IVPUSH Q8H [facility] Last Admin: 04/28/19 02:10 Dose: Not Given Heparin Sodium (Porcine) (Heparin Sodium) 5,000 units SUBCUT Q8H [facility] Last Admin: 04/29/19 09:40 Dose: 5,000 units Influenza Virus Vaccine (Pharmacy To Dose - Influenza Vaccine) 1 each IM ONETIME ONE Stop: 04/27/19 01:29 Influenza Virus Vaccine (Fluzone Quad Syringe) 60 mcg IM .ONCE ONE Stop: 04/28/19 09:01 Last Admin: 04/29/19 12:46 Dose: 60 mcg Levofloxacin (Levaquin) 750 mg PO Q24H [facility] Last Admin: 04/29/19 09:38 Dose: 750 mg Lisinopril (Prinivil) 10 mg PO DAILY [facility] Last Admin: 04/29/19 09:37 Dose: 10 mg Methylprednisolone Sodium Succinate (Solu-Medrol) 125 mg IVPUSH ONETIME ONE Stop: 04/26/19 22:03 Last Admin: 04/26/19 22:07 Dose: 125 mg Methylprednisolone Sodium Succinate (Solu-Medrol) 125 mg IVPUSH Q8H [facility] Last Admin: 04/29/19 13:29 Dose: 125 mg Pantoprazole Sodium (Protonix) 40 mg PO DAILY [facility] Last Admin: 04/29/19 09:37 Dose: 40 mg - Free Text/Narrative Note: I have examined patient with resident. I have discussed findings and treatment plan with the resident. I agree with the assessment and plan as outlined in the following note.
--- NOTE | 2019-05-01 16:31 | ECHO ---
The echocardiogram report can be seen in this patient's EMR (Electronic Medical Record) in the REPORTS section. The echocardiogram report has also been scanned into PACS and can be seen there as well. [facility]
== END 2019-04-29 15:00 | disposition home or self-care (01) | DRG 192 ==
LOC: MW.ED 21:42 → MW.MS 04-27 01:09 → OBSVTOIN 04-27 10:43 → MW.MS 04-27 10:44
PROVIDERS: ADMIT Internal Medicine; ATTEND Internal Medicine
DX: J44.1 Chronic obstructive pulmonary disease with (acute) exacerbation (principal); I10 Essential (primary) hypertension; F17.200 Nicotine dependence, unspecified, uncomplicated; Z88.0 Allergy status to penicillin; Z79.899 Other long term (current) drug therapy; Z90.49 Acquired absence of other specified parts of digestive tract
CPT/HCPCS: 36415; 71045; 71045-26; 80048; 80053; 82962; 83735; 83880; 84484; 85025; 87804; 90686; 93005; 93306; 94640; 96374; 99285-25; A9270-GY; J1644; J2930; J7620-GY

== ENCOUNTER 2019-07-18 15:54 | Emergency (ER) | payer MEDICAID, BC ==
[2019-07-18] MEDS ORDERED: Albuterol/Ipratropium 3.0-0.5 MG/3 ML Neb Soln NEB ONE (16:01)
--- NOTE | 2019-07-18 16:11 | EDM.PDOC ---
ED HPI GENERAL MEDICAL PROBLEM - General Chief Complaint: Respiratory Problem Stated Complaint: SHORTNESS OF BREATH Time Seen by Provider: 07/18/19 16:11 Source of Information: Reports: Patient History Limitations: Reports: No Limitations - History of Present Illness INITIAL COMMENTS - FREE TEXT/NARRATIVE: HISTORY AND PHYSICAL: History of present illness: Patient is a 64-year-old female with history of COPD and hypertension presents to the ED With 2 day history of shortness of breath and fever. Patient reports symptoms x 2-3 days. She states she does have a slight cough but not much worse than normal. She states she has had a temp around 101F at home. She is normally on continuous oxygen at home at 2L. She does have a pulse oximeter at home is normally around 88-92% at home on 2L. She states she has been using her nebulizer with some relief of symptoms. She denies chest pain, vomiting, diarrhea, abdominal pain, headache, sore throat. She denies any recent travel or known sick contacts. Patient states she is very anxious with the recent COVID -19 outbreak. Review of systems: As per history of present illness and below otherwise all systems reviewed and negative. Past medical history: As per history of present illness and as reviewed below otherwise noncontributory. Surgical history: As per history of present illness and as reviewed below otherwise noncontributory. Social history: No reported history of drug or alcohol abuse. Family history: As per history of present illness and as reviewed below otherwise noncontributory. Physical exam: General: Patient sitting comfortably in no acute distress and nontoxic appearing HEENT: Atraumatic, normocephalic, pupils reactive, negative for conjunctival pallor or scleral icterus, mucous membranes moist, throat clear, neck supple, nontender, trachea midline. No meningeal signs. Lungs: Mild wheezing to the lung bases, chest nontender. Heart: S1S2, regular, negative for clicks, rubs, or overt murmur. Abdomen: Soft, nondistended, nontender. Negative for masses or hepatosplenomegaly. Negative for costovertebral tenderness. No rigidity, rebound , guarding. Pelvis: Stable nontender. Genitourinary: Deferred. Rectal: Deferred. Extremities: Atraumatic, negative for cords or calf pain. Neurovascular unremarkable. Neuro: Awake, alert, oriented. Cranial nerves II through XII unremarkable. Cerebellum unremarkable. Motor and sensory unremarkable throughout. Exam nonfocal. Notes: Patient initially hyperventilating during our visit. After talking with her and advising her to take deep breaths, she was able to calm down and breath normally. Chest x-ray shows no signs of pneumonia, labs unremarkable, influenza negative. Patient is satting at 92-94% on 2L. Discussed with patient discharged home as she has nebulizer and oxygen at home and she agrees to plan. She understands to return to ED if new or worsening symptoms. Due to the current criteria by the [facility], patient does not meet criteria for COVID-10 testing at this time. Full PPE was worn during our visit. Diagnostics: CBC, CMP, influenza, CXR, influenza Therapeutics: Albuterol inhaler with spacer 125mg Solumedrol IV 1L NS IV Prescriptions: Azithromycin Medrol dosepak Impression: COPD exacerbation Plan: Take medications as prescribed Continue oxygen and nebulizer treatments as discussed Follow up with primary care provider Return to ED as needed as discussed Definitive disposition and diagnosis as appropriate pending reevaluation and review of above. - Related Data Allergies Allergy/AdvReac Type Severity Reaction Status Date / Time Penicillins Allergy Other Verified 07/18/19 15:58 Home Meds: Home Meds Albuterol [Ventolin HFA] 1 puff INH ASDIRECTED PRN 04/26/19 [History] Albuterol/Ipratropium [Combivent Respimat] 1 puff IH ASDIRECTED PRN 04/26/19 [ History] Budesonide/Formoterol Fumarate [Symbicort 160-4.5 Mcg Inhaler] 2 puff IH BID [History] lisinopriL [Lisinopril] 10 mg PO DAILY 04/26/19 [History] Albuterol/Ipratropium [DuoNeb 3.0-0.5 MG/3 ML] 3 ml INH ASDIRECTED PRN 07/18/19 [History] Azithromycin [Zithromax] 250 mg PO ASDIRECTED #1 dosepk 07/18/19 [Rx] methylPREDNISolone [Medrol] 4 mg PO ASDIRECTED #1 tab.ds.pk 07/18/19 [Rx] Past Medical History HEENT History: Reports: None Cardiovascular History: Reports: Hypertension Respiratory History: Reports: Asthma, COPD Gastrointestinal History: Reports: None Genitourinary History: Reports: None [employer] History: Reports: Musculoskeletal History: Reports: None Neurological History: Reports: None Psychiatric History: Reports: None Endocrine/Metabolic History: Reports: None Hematologic History: Reports: None Immunologic History: Reports: None Oncologic (Cancer) History: Reports: None Dermatologic History: Reports: None - Infectious Disease History Infectious Disease History: Reports: Chicken Pox, Measles - Past Surgical History Head Surgeries/Procedures: Reports: None GI Surgical History: Reports: Cholecystectomy Social & Family History - Family History Family Medical History: Noncontributory - Tobacco Use Smoking Status *Q: Former Smoker Used Tobacco, but Quit: Yes Month/Year Tobacco Last Used: 2018 - Caffeine Use Caffeine Use: Reports: Coffee, Tea - Recreational Drug Use Recreational Drug Use: No ED ROS GENERAL - Review of Systems Review Of Systems: Comprehensive ROS is negative, except as noted in HPI. ED EXAM, GENERAL - Physical Exam Exam: See Below (see dictation) Course - Vital Signs Last Recorded V/S: Last Vital Signs Temp 98.6 F 07/18/19 18:00 Pulse 86 07/18/19 18:00 Resp 19 07/18/19 18:00 BP 111/54 L 07/18/19 18:00 Pulse Ox 92 L 07/18/19 18:00 - Orders/Labs/Meds Labs: Laboratory Tests 07/18/19 07/18/19 Range/Units 16:45 16:45 WBC 9.84 (4.0-11.0) K/uL RBC 4.43 (4.30-5.90) M/uL Hgb 12.9 (12.0-16.0) g/dL Hct 40.6 (36.0-46.0) % MCV 91.6 (80.0-98.0) fL MCH 29.1 (27.0-32.0) pg MCHC 31.8 (31.0-37.0) g/dL RDW Std Deviation 48.6 (28.0-62.0) fl RDW Coeff of Silvio 14 (11.0-15.0) % Plt Count 241 (150-400) K/uL MPV 9.60 (7.40-12.00) fL Neut % (Auto) 85.2 H (48.0-80.0) % Lymph % (Auto) 9.1 L (16.0-40.0) % Bond % (Auto) 5.2 (0.0-15.0) % Eos % (Auto) 0.4 (0.0-7.0) % Baso % (Auto) 0.1 (0.0-1.5) % Neut # (Auto) 8.4 H (1.4-5.7) K/uL Lymph # (Auto) 0.9 (0.6-2.4) K/uL Bond # (Auto) 0.5 (0.0-0.8) K/uL Eos # (Auto) 0.0 (0.0-0.7) K/uL Baso # (Auto) 0.0 (0.0-0.1) K/uL Nucleated RBC % 0.0 /100WBC Nucleated RBCs # 0 K/uL Sodium 134 L (136-145) mmol/L Potassium 4.3 (3.5-5.1) mmol/L Chloride 100 (98-107) mmol/L Carbon Dioxide 24.9 (21.0-32.0) mmol/L BUN 11 (7.0-18.0) mg/dL Creatinine 0.7 (0.6-1.0) mg/dL Est Cr Clr Drug Dosing 77.01 mL/min Estimated GFR (MDRD) > 60.0 ml/min Glucose 106 (74-106) mg/dL Calcium 8.4 L (8.5-10.1) mg/dL Total Bilirubin 0.1 L (0.2-1.0) mg/dL AST 25 (15-37) IU/L ALT 25 (14-63) IU/L Alkaline Phosphatase 81 (46-116) U/L Total Protein 7.1 (6.4-8.2) g/dL Albumin 3.4 (3.4-5.0) g/dL Globulin 3.7 (2.6-4.0) g/dL Albumin/Globulin Ratio 0.9 (0.9-1.6) Meds: Medications Discontinued Medications Generic Name Dose Route Start Last Admin Trade Name Freq PRN Reason Stop Dose Admin Albuterol/Ipratropium 3 ml 07/18/19 16:01 07/18/19 18:02 Duoneb 3.0-0.5 Mg/3 Ml NEB 07/18/19 16:02 Not Given ONETIME ONE Sodium Chloride 1,000 mls @ 999 mls/hr 07/18/19 16:19 07/18/19 16:43 Normal Saline IV 07/18/19 17:19 999 mls/hr STAT ONE Administration Methylprednisolone Sodium Succinate 125 mg 07/18/19 16:29 07/18/19 16:42 Solu-Medrol IVPUSH 07/18/19 16:30 125 mg ONETIME ONE Administration Sodium Chloride 10 ml 07/18/19 16:19 Saline Flush FLUSH ASDIRECTED PRN Keep Vein Open Sodium Chloride 2.5 ml 07/18/19 16:19 Saline Flush FLUSH ASDIRECTED PRN Keep Vein Open Departure - Departure Time of Disposition: 17:27 Disposition: Home, Self-Care 01 Condition: Good Clinical Impression: COPD exacerbation - Discharge Information Prescriptions: Azithromycin [Zithromax] 250 mg PO ASDIRECTED #1 dosepk methylPREDNISolone [Medrol] 4 mg PO ASDIRECTED #1 tab.ds.pk Instructions: Chronic Obstructive Pulmonary Disease Exacerbation, [id number] Referrals: Brian Coburn MD [Primary Care Provider] - Forms: ED Department Discharge Additional Instructions: The following information is given to patients seen in the emergency department who are being discharged to home. This information is to outline your options for follow-up care. We provide all patients seen in our emergency department with a follow-up referral. The need for follow-up, as well as the timing and circumstances, are variable depending upon the specifics of your emergency department visit. If you don't have a primary care physician on staff, we will provide you with a referral. We always advise you to contact your personal physician following an emergency department visit to inform them of the circumstance of the visit and for follow-up with them and/or the need for any referrals to a consulting specialist. The emergency department will also refer you to a specialist when appropriate. This referral assures that you have the opportunity for follow-up care with a specialist. All of these measure are taken in an effort to provide you with optimal care, which includes your follow-up. Under all circumstances we always encourage you to contact your private physician who remains a resource for coordinating your care. When calling for follow-up care, please make the office aware that this follow-up is from your recent emergency room visit. If for any reason you are refused follow-up, please contact the [facility] Emergency Department at and asked to speak to the emergency department charge nurse. [facility] [address] [place] [id number] [address] [id number] Take medications as prescribed Continue oxygen and nebulizer treatments as discussed Follow up with primary care provider Return to ED as needed as discussed Sepsis Event Note - Evaluation Sepsis Screening Result: Possible Sepsis Risk - Focused Exam Date Exam was Performed: 07/20/19 Time Exam was Performed: 10:35
[2019-07-18] MEDS ORDERED: Sodium Chloride 0.9% 2.5 ML Syringe FLUSH PRN (16:19)
[2019-07-18] MEDS ORDERED: Sodium Chloride 0.9% 10 ML Syringe FLUSH PRN (16:19)
[2019-07-18] MEDS ORDERED: Sodium Chloride 0.9% 1,000 ML IV ONE (16:19)
[2019-07-18] MEDS ORDERED: methylPREDNISolone Sodium Succinate 125 MG/2 ML SDV IVPUSH ONE (16:29)
--- NOTE | 2019-07-18 16:44 | CR ---
INDICATION: Shortness of breath TECHNIQUE: Chest radiograph 1 view COMPARISON: 04/26/19 FINDINGS: Moderate degradation of image quality noted due to body habitus. Mediastinum: The mediastinum is normal in appearance. The heart silhouette is normal in size and morphology. Lung: Both lungs are unremarkable in appearance. No sign of pleural effusion seen. No pneumothorax is identified. Bone and Soft tissue: Unremarkable for age. IMPRESSION: 1. No acute cardiopulmonary disease is seen. Dictated by: Dylan Blackwood MD @ 07/18/2019 16:43:28 (Electronically Signed)
[2019-07-18 17:15] LABS: BLOOD UREA NITROGEN,BUN 11 mg/dL (7.0-18.0); CARBON DIOXIDE,CO2 24.9 mmol/L (21.0-32.0); CHLORIDE,CL 100 mmol/L (98-107); GLUCOSE RANDOM 106 mg/dL (74-106); POTASSIUM,K 4.3 mmol/L (3.5-5.1); SODIUM,NA 134 mmol/L (136-145)
== END 2019-07-18 18:00 | disposition home or self-care (01) ==
LOC: MW.ED 15:54
DX: J44.1 Chronic obstructive pulmonary disease with (acute) exacerbation (principal); I10 Essential (primary) hypertension; Z87.891 Personal history of nicotine dependence; Z88.0 Allergy status to penicillin; Z79.899 Other long term (current) drug therapy
CPT/HCPCS: 36415; 71045; 80053; 85025; 87804; 93005; 96361; 96374; 99285; J2930; J7030; 99284